=== PATIENT | female | born 1995 | race Caucasian/White ===

== ENCOUNTER → 2017-10-14 16:53 | Outpatient (CLI) | payer OTHER, SELFPAY ==
--- NOTE | 2017-10-14 | DI.MRI.S_ITS ---
PROCEDURE: MR LUMBAR SPINE WO CON INDICATIONS: low back pain TECHNIQUE: Noncontrast sagittal T1 spin echo and T2 fast echo, sagittal STIR, axial T1 and T2 fast spin echo through the lumbar spine. In cases with scoliosis, additional coronal T2 fast spin echo may be performed. COMPARISON: None. FINDINGS: Image quality: Excellent. Alignment and Curvature: There is normal bony alignment. Bone Marrow: Marrow is of normal overall signal. No acute vertebral body compression fractures. Spinal Cord: Conus medullaris terminates at the L2 level. Visualized cord demonstrates normal signal and size. Paraspinous Soft Tissues: No paravertebral masses. L1-L2: Normal appearance. L2-L3: Normal appearance. L3-L4: Normal appearance. L4-L5: Normal appearance. L5-S1: Minimal intervertebral body disc height loss with broad-based posterior disc bulge.. IMPRESSION: Minimal L5-S1 intervertebral body disc height loss with broad-based posterior disc bulge. The central spinal canal and neural foramina are patent. Dictated by: Dawit Chavez M.D. on 10/15/2017 at 8:40 Approved by: Dawit Chavez M.D. on 10/15/2017 at 8:43
== END ==
PROVIDERS: Visit Provider General Practice
DX: M51.17 Intervertebral disc disorders with radiculopathy, lumbosacral region (principal)
CPT/HCPCS: 72148